=== PATIENT | female | born 1955 | race Caucasian/White ===

== ENCOUNTER 2016-08-20 13:30 | Observation (INO) ==
--- NOTE | 2016-08-20 13:45 | Emergency Department Note ---
Disposition Clinical Impression: Chest pain Qualifiers: Chest pain type: precordial pain Qualified Code(s): R07.2 - Precordial pain Disposition: Admitted As Inpatient Chest Pain HPI - General Chief Complaint: ED Chest Pain Stated Complaint: chest pain off and on for 4 days Time Seen by Provider: 08/20/16 13:39 Source: patient Mode of arrival: private vehicle Limitations: no limitations Vital Signs Reviewed: Yes Nursing Notes Reviewed: Yes - History of Present Illness HPI Narrative: Patient late she has been having intermittent left parasternal chest pain for about 4 days. She states the pain has been steady today and is described as "aggravating". She states the pain is aching in his worse with motion or exertion. She has a change activity, strain, impact or injury. She has not had rash or swelling. She states she has COPD but no increased shortness of breath. She does have dyspnea on exertion but that is chronic. She has diaphoresis or nausea. She denies radiation of this pain to her back, jaw, arms or neck. She denies any pain like this before. She describes the pain as "just aggravating" but then also states is a 10 on a scale of 1-10. She does relate that she sees Dr. Hamilton at [facility] cardiology. She did have 3 cardiac stents placed in April 2016. Pt complaint: chest pain Onset (ago): day(s) (4) Duration: intermittent, gradually worsening Onset: during rest Pain Location: left chest Severity: moderate Quality: aching Pain Radiation: none Improves with: rest Worsens with: exertion, palpation, movement Associated symptoms: Denies: nausea, vomiting, diaphoresis, dyspnea, syncope, palpitations, fever, cough, leg swelling - Related Data Home Medications Medication Instructions Recorded Confirmed Amlodipine Besylate [Norvasc] 10 mg PO DAILY 10/21/14 08/20/16 Cyclobenzaprine HCl 10 mg PO TID 10/21/14 08/20/16 Losartan/Hydrochlorothiazide 1 each PO DAILY 10/21/14 08/20/16 [Losartan-Hctz 100-25 mg Tab] Oxycodone HCl/Acetaminophen 1 tab PO Q6H PRN 10/21/14 08/20/16 [Percocet 5-325 mg Tablet] Rosuvastatin [Crestor] 40 mg PO HS 10/21/14 08/20/16 Trazodone HCl 1 - 2 tab PO PRN PRN 10/21/14 08/20/16 Fluticasone/Salmeterol [Advair 1 each IH BID 03/25/15 08/20/16 250-50 Diskus] Tiotropium [Spiriva] 18 mcg IH 0700 03/25/15 08/20/16 Albuterol Sulfate [Proair 90 mcg IH Q4HR PRN 04/28/15 08/20/16 Respiclick] Fluticasone Propionate Nasal 0 gm QPM 04/28/15 08/20/16 [Flonase] Naproxen [Naprosyn] 500 mg PO BID 04/28/15 08/20/16 Previous Rx's Medication Instructions Recorded Aspirin Enteric Coated [Aspirin EC] 81 mg PO DAILY #30 tablet. 10/22/14 Clopidogrel [Plavix] 75 mg PO DAILY #30 tablet 10/22/14 Doxycycline 100 mg PO BID #14 capsule 07/08/16 GuaiFENesin/Dextromethorphan 1 each PO BID #14 tab.er.12h 07/08/16 [Mucus Dm Max 1,200-60 mg Tab] Allergies Allergy/AdvReac Type Severity Reaction Status Date / Time Latex, Natural Rubber Allergy Hives Verified 07/08/16 11:54 Penicillins Allergy Hives Verified 07/08/16 11:54 propoxyphene Allergy Hives Verified 07/08/16 11:54 All systems ED: reviewed and negative except as stated. Chest Pain PMH - Past Medical History Medical history: Reports: asthma, COPD, coronary artery disease, hyperlipidemia , hypertension Surgical history: Reports: angioplasty/stent, hysterectomy, orthopedic, other ( Right shoulder and rib repair) Psychiatric history: Reports: no psych history MAINTENANCE [employer] history: Reports: no MAINTENANCE [employer] history - Social History Smoking Status: Current every day smoker Alcohol use: Reports: none Drug use: Reports: none Physical Exam - General Limitations: no limitations General appearance: alert, in no apparent distress - Head Head exam: atraumatic, normocephalic, normal inspection - Eye Eye exam: Present: normal appearance, PERRL, EOMI - ENT ENT exam: normal exam, normal oropharynx, mucous membranes moist - Neck Neck exam: Present: normal inspection, full ROM, trachea midline. Absent: tenderness, lymphadenopathy - Chest Chest inspection: Present: normal inspection, symmetric chest wall rise, tenderness (Left peristernal region) - Respiratory Respiratory exam: Present: wheezes. Absent: respiratory distress, accessory muscle use, prolonged expiratory phase - Cardiovascular Cardiovascular exam: Present: regular rate, normal rhythm, normal heart sounds - Abdominal Exam Abdominal exam: Present: soft, Non-Tender, normal bowel sounds. Absent: tenderness, distention, guarding, rebound, rigidity - Extremities Exam Extremities exam: Present: normal inspection, full ROM, normal capillary refill. Absent: tenderness, pedal edema - Expanded Lower Extremity Exam Neurovascular/Tendon exam: Present: normal capillary refill. Absent: motor deficit, sensory deficit, tendon deficit Gait: observed and normal - Back Exam Back exam: Present: normal inspection, full ROM. Absent: tenderness, CVA tenderness (R), CVA tenderness (L), vertebral tenderness - Neurological Exam Neurological exam: Present: alert, oriented X3, normal gait - Psychiatric Psychiatric exam: Present: normal affect, normal mood - Skin Skin exam: Present: warm, dry, intact, normal color. Absent: cyanosis, diaphoresis, pallor Course Vital Signs Temperature 99.1 F 08/20/16 13:32 Respiratory Rate 16 08/20/16 13:32 Temperature 97.7 F 08/20/16 15:31 Pulse Rate 71 08/20/16 15:26 Respiratory Rate 20 08/20/16 15:31 Blood Pressure 118/68 08/20/16 15:31 O2 Sat by Pulse Oximetry 95 08/20/16 15:26 Oxygen Delivery Oxygen Delivery Nasal Cannula Chest Pain - Differential Diagnosis Likely: atypical chest pain, costalchondritis, chest pain - Lab Data Lab results reviewed: Yes I reviewed the patient's lab results. Result diagrams: 08/20/16 13:55 08/20/16 13:55 Lab Results 08/20/16 08/20/16 08/20/16 Range/Units 13:55 13:55 13:55 WBC 12.0 H (4.3-11.1) K/mcL RBC 4.54 (3.82-4.97) M/mcL Hgb 13.6 (11.5-15.4) g/dL Hct 39.1 (35.3-44.9) % MCV 86.1 (83.0-100.0) fL MCH 30.0 (28.0-33.3) pg MCHC 34.8 (31.6-35.5) g/dL RDW 14.4 (11.5-14.5) % Plt Count 217 (140-400) K/mcL MPV 10.4 (9.4-12.4) fL Immature Gran % 0.3 (0-4) % Seg Neutrophils % 76.7 % Lymphocytes % 16.7 % Monocytes % 5.7 % Eosinophils % 0.3 % Basophils % 0.3 % Neutrophils # 9.2 H (1.6-8.9) K/mcL Lymphocytes # 2.0 (0.6-4.6) K/mcL Monocytes # 0.7 (0.0-1.3) K/mcL Eosinophils # 0.0 (0.0-0.6) K/mcL Basophils # 0.0 (0.0-0.2) K/mcL PT 11.8 (9.4-12.1) Seconds INR 1.1 APTT 31.2 (26.0-36.0) Seconds Sodium 141 (136-145) mEq/L Potassium 3.0 L (3.5-4.5) mEq/L Chloride 103 (98-109) mEq/L Carbon Dioxide 25 (19-29) mEq/L BUN 20 (7-20) mg/dL Creatinine 0.83 (0.57-1.11) mg/dL Est GFR ( Amer) > 60 (> 60) Est GFR (Non-Af Amer) > 60 (> 60) BUN/Creatinine Ratio 24 (6-26) Glucose 144 H (70-99) mg/dL Calculated Osmolality 297 (280-300) Calcium 10.0 (8.6-10.8) mg/dL Troponin I (0-0.03) ng/mL 08/20/16 Range/Units 13:55 WBC (4.3-11.1) K/mcL RBC (3.82-4.97) M/mcL Hgb (11.5-15.4) g/dL Hct (35.3-44.9) % MCV (83.0-100.0) fL MCH (28.0-33.3) pg MCHC (31.6-35.5) g/dL RDW (11.5-14.5) % Plt Count (140-400) K/mcL MPV (9.4-12.4) fL Immature Gran % (0-4) % Seg Neutrophils % % Lymphocytes % % Monocytes % % Eosinophils % % Basophils % % Neutrophils # (1.6-8.9) K/mcL Lymphocytes # (0.6-4.6) K/mcL Monocytes # (0.0-1.3) K/mcL Eosinophils # (0.0-0.6) K/mcL Basophils # (0.0-0.2) K/mcL PT (9.4-12.1) Seconds INR APTT (26.0-36.0) Seconds Sodium (136-145) mEq/L Potassium (3.5-4.5) mEq/L Chloride (98-109) mEq/L Carbon Dioxide (19-29) mEq/L BUN (7-20) mg/dL Creatinine (0.57-1.11) mg/dL Est GFR ( Amer) (> 60) Est GFR (Non-Af Amer) (> 60) BUN/Creatinine Ratio (6-26) Glucose (70-99) mg/dL Calculated Osmolality (280-300) Calcium (8.6-10.8) mg/dL Troponin I 0.01 (0-0.03) ng/mL - Radiology Data Radiology results reviewed: Yes I reviewed the patient's radiology results. Single view chest x-ray is performed. This does not demonstrate evidence for infiltrate, effusion, pneumothorax, foreign body or heart failure. The cardiac silhouette is normal. I do not see abnormality to the osseous structures of the chest. This is on my interpretation. Impressions Chest X-Ray 08/20/16 13:39 IMPRESSION: No acute infiltrate is identified. Prominent pulmonary arterial trunk suspicious for pulmonary arterial hypertension. D/ / Jay Putnam MD / Jay Putnam MD Interpreting Provider: Jay Putnam MD - EKG Data EKG attestation: Yes I reviewed and interpreted this EKG. EKG shows normal: sinus rhythm, axis, intervals, ST-T waves [place]/QRS: RBBB P waves: LAE Interpretation: no acute changes Heart Score - Score History: Slightly Suspicious EKG: Non Specific repolarisation Disturbance Age: 45-65 Risk Factors: Equal/Greater than 3 risk factor or history of atherosclerotic disease Troponin: Less than normal limit HEART Score Total: 4
[2016-08-20] MEDS ORDERED: Aspirin 325 MG TABLET PO ONE (13:48)
[2016-08-20] MEDS: Nitroglycerin 0.4 MG TAB.SUBL SL PRN ×2 (14:02→14:09)
[2016-08-20 14:04] LABS: Basophils % 0.3 %; Eosinophils % 0.3 %; Hematocrit 39.1 % (35.3-44.9); Hemoglobin 13.6 g/dL (11.5-15.4); Immature Granulocytes % 0.3 % (0-4); Lymphocytes % 16.7 %; Mean Corpuscular HGB Conc 34.8 g/dL (31.6-35.5); Mean Corpuscular Volume 86.1 fL (83.0-100.0); Mean Platelet Volume 10.4 fL (9.4-12.4); Monocytes # 0.7 K/mcL (0.0-1.3); Monocytes % 5.7 %; Neutrophils # 9.2 K/mcL (1.6-8.9); Platelet Count 217 K/mcL (140-400); Red Blood Count 4.54 M/mcL (3.82-4.97); Red Cell Distribution Width 14.4 % (11.5-14.5); Segmented Neutrophils % 76.7 %
[2016-08-20 14:10] LABS: INR 1.1; Prothrombin Time 11.8 Seconds (9.4-12.1)
[2016-08-20 14:13] LABS: Activated Partial Thrombo Time 31.2 Seconds (26.0-36.0)
[2016-08-20] MEDS ORDERED: Nitroglycerin 1 INCH/GM PACKET TP ONE (14:16)
[2016-08-20 14:17] LABS: BUN/Creatinine Ratio 24 (6-26); Blood Urea Nitrogen 20 mg/dL (7-20); Carbon Dioxide 25 mEq/L (19-29); Chloride 103 mEq/L (98-109); Glucose 144 mg/dL (70-99); Osmolality,Calculated 297 (280-300); Sodium 141 mEq/L (136-145); eGFR For African Americans > 60 (> 60); eGFR For Non-African Americans > 60 (> 60)
[2016-08-20] MEDS ORDERED: Nitroglycerin 0.4 MG TAB.SUBL SL PRN (15:14)
[2016-08-20] MEDS ORDERED: Ondansetron 4 MG/2 ML VIAL IVP PRN (15:14)
[2016-08-20] MEDS ORDERED: MOM Conc 10 ML UD.LIQ PO PRN (15:14)
[2016-08-20] MEDS ORDERED: Acetaminophen 325 MG TABLET PO PRN (15:14)
[2016-08-20] MEDS ORDERED: Naloxone 0.4 MG/ML INJ IVP PRN (15:14)
[2016-08-20] MEDS ORDERED: *HR* OxyCODONE/APAP 5/325 TABLET PO PRN (15:14)
--- NOTE | 2016-08-20 16:37 | Electrocardiograph Report ---
[address] [address] Test Date: 2016-08-20 Pat Name: Shelli Lynn Department: [id number] Room: [facility] Gender: F Program Evaluator: [id number] : 1955 Requested By: Domo Moses Order Number: [id number] Reading MD: Tima Haque Measurements Intervals [place] Rate: 91 P: -14 GA: 166 QRS: -18 QRSD: 148 T: 16 QT: 390 QTc: 439 Interpretive Statements SINUS RHYTHM POSSIBLE LEFT ATRIAL ENLARGEMENT RIGHT BUNDLE BRANCH BLOCK Electronically Signed On 08-20-2016 16:35:34 EDT by Tima Haque
[2016-08-20] MEDS: GuaiFENesin/Dextromethorphan TABLET PO SCH (21:00)
[2016-08-20] MEDS ORDERED: amLODIPine 5 MG TABLET PO SCH (21:00)
[2016-08-20] MEDS: Doxycycline 100 MG CAPSULE PO SCH (21:00)
[2016-08-20] MEDS: Budesonide/Formoterol 80/4.5 MDI IH SCH (21:34)
[2016-08-21] MEDS ORDERED: Nitroglycerin 1 INCH/GM PACKET TP SCH (06:00)
[2016-08-21 06:35] VITALS: BP 122/77
[2016-08-21] MEDS ORDERED: Tiotropium 18 MCG inhalation IH SCH (07:00)
[2016-08-21] MEDS: Budesonide/Formoterol 80/4.5 MDI IH SCH (08:01)
[2016-08-21] MEDS: GuaiFENesin/Dextromethorphan TABLET PO SCH (08:26)
[2016-08-21] MEDS: Doxycycline 100 MG CAPSULE PO SCH (08:26)
[2016-08-21] MEDS ORDERED: Aspirin Enteric Coated 81 MG Tablet PO SCH (09:00)
[2016-08-21] MEDS ORDERED: Losartan/HCTZ 50-12.5 TABLET PO SCH (09:00)
--- NOTE | 2016-08-21 09:49 | Internal Med History&Physical ---
Date of Encounter: 08/21/16 Time of Encounter: 09:20 Assessment and Plan (1) Chest pain Current visit: Yes Status: Acute Doubt myocardial ischemic origin from history and physical. Repeat cardiac enzymes were ordered through emergency room. Qualifiers: Chest pain type: unspecified Qualified Code(s): R07.9 - Chest pain, unspecified (2) Hypokalemia Current visit: Yes Status: Acute Probably secondary to diuretic use. We will give supplemental potassium. Internal Medicine - H&P: HPI Chief complaint: Chest pain Admitted From: Home Plans for Post Hospital Care: Home History of present illness: Ms. Lynn is a 61 year old female who came to emergency room stating she had onset of chest pain July 16 while at leisure. The pain seemed to come and go for the first 2 days but on the third day returned and did not resolve. She describes it as a heaviness/tightness in her left parasternal area. There was no cough or dyspnea associated. On August 20 the pain seemed to worsen so she tried nitroglycerin spray at home. There was no relief. She came to emergency room and was evaluated and admitted to [facility] floor for ongoing care needs. She states she is pain-free at this time and wishes to be discharged home. Her cardiovascular history is significant for hypertension. She denies [place] but states she had 3 stents placed July 2015. She is uncertain she has CHF. She states she had a right leg DVT many years ago. She denies pulmonary embolus. She does not get angina or anginal equivalents on exertion. She has not had previous similar chest pain. Past Med Surg Social Fam HX - Past Medical History Medical history: asthma, COPD, coronary artery disease, hyperlipidemia, hypertension Psychiatric history: no psych history - Past Surgical History Surgical History: angioplasty/stent, hysterectomy, orthopedic, other (Right shoulder and rib repair) - Social History Smoking Status: Current every day smoker Packs per day: 1.5 ppd Smokeless Tobacco Status: No Alcohol use: none Drug use: none Internal Medicine - H&P: Meds Amlodipine Besylate [Norvasc] 10 mg PO DAILY 10/21/14 [History] Cyclobenzaprine HCl 10 mg PO TID 10/21/14 [History] Losartan/Hydrochlorothiazide [Losartan-Hctz 100-25 mg Tab] 1 each PO DAILY 10/21 [History] Oxycodone HCl/Acetaminophen [Percocet 5-325 mg Tablet] 1 tab PO Q6H PRN [History] Rosuvastatin [Crestor] 40 mg PO HS 10/21/14 [History] Trazodone HCl 1 - 2 tab PO PRN PRN 10/21/14 [History] Aspirin Enteric Coated [Aspirin EC] 81 mg PO DAILY #30 tablet. 10/22/14 [Rx] Clopidogrel [Plavix] 75 mg PO DAILY #30 tablet 10/22/14 [Rx] Fluticasone/Salmeterol [Advair 250-50 Diskus] 1 each IH BID 03/25/15 [History] Tiotropium [Spiriva] 18 mcg IH 0700 03/25/15 [History] Albuterol Sulfate [Proair Respiclick] 90 mcg IH Q4HR PRN 04/28/15 [History] Fluticasone Propionate Nasal [Flonase] 0 gm QPM 04/28/15 [History] Naproxen [Naprosyn] 500 mg PO BID 04/28/15 [History] Doxycycline 100 mg PO BID #14 capsule 07/08/16 [Rx] GuaiFENesin/Dextromethorphan [Mucus Dm Max 1,200-60 mg Tab] 1 each PO BID #14 tab.er.12h 07/08/16 [Rx] Allergies Latex, Natural Rubber Allergy (Verified 07/08/16 11:54) Hives negative lindsay test 04/27 Penicillins Allergy (Verified 07/08/16 11:54) Hives propoxyphene Allergy (Verified 07/08/16 11:54) Hives All Systems PM: A 10-system review of systems was performed and is negative for pertinent findings except as documented above in the HPI. Review of systems: Gen.: She states her weight has been stable past few months Cardiovascular:As per history of present illness Respiratory: Smoked since age 17 up to 2 packs per day. She has a diagnosis of COPD but does not recall if she has had PFTs. She has oxygen at home that she wears at bedtime. GI: She denies disorders of her liver gallbladder or exocrine pancreas : She denies hematuria dysuria or kidney stones Neurologic: She denies large distribution strokes or seizures. She had a cerebrovascular aneurysm clipping procedure in the past Endocrine: She has hyperlipidemia but denies diabetes or thyroid disease Hematology/oncology: She denies blood disorders cancers or anemia Psychiatric: She denies anxiety depression or other mental health issues [place] skeletal: She has DJD but denies other bone joint or muscle disorders. She had a horse related accident several years ago and sustained right rib fractures, right shoulder injury and right clavicle fracture. - Constitutional Vitals: Temp Pulse Resp BP Pulse Ox 97.9 F 61 14 122/77 95 08/21/16 06:32 08/21/16 06:32 08/21/16 08:00 08/21/16 06:32 08/21/16 08:37 General appearance: Present: A&O X 2 Exam: Gen.: She is a well-developed well-nourished female who appears in no acute distress at present time HEENT: Head is atraumatic and normocephalic. Eyes: EOMI. There is no scleral icterus. Mouth: Mucosa is moist. Neck: Supple and nontender. There is no thyromegaly or adenopathy noted. Heart: Regular without murmurs gallops or ectopics Chest: She is nontender in chest wall to palpation Back: Straight without flank tenderness or presacral edema Abdomen: Soft and nontender. No masses or guarding noted. Extremities: There is no cyanosis edema clubbing noted. She is wearing CARLENE hose which I did not remove. Neurologic: Mental status: She is talkative and a good historian. Cranial nerves: Smile is symmetric. Forehead wrinkles bilaterally. Tongue protrudes midline. EOMI. Motor: There is no pronator drift. Cerebellar: Finger to nose is intact bilaterally. Skin: Warm and dry Internal Med - H&P Results - Labs CBC & Chem 7: 08/20/16 13:55 08/20/16 13:55 Labs: Cardiac Enzymes 08/20/16 08/21/16 Range/Units 19:54 01:50 Troponin I 0.02 0.01 (0-0.03) ng/mL - VTE Documentation of Mechanical Device: Graduated compression elastic hosiery
--- NOTE | 2016-08-21 10:01 | Discharge Summary ---
Date of Encounter: 08/21/16 Time of Encounter: 09:20 - Discharge Diagnosis (1) Chest pain Priority: Primary Status: Resolved Qualifiers: Chest pain type: unspecified Qualified Code(s): R07.9 - Chest pain, unspecified (2) Hypokalemia Priority: Secondary Status: Acute - Discharge Medications Prescriptions: Potassium Chloride 20 meq PO DAILY #30 tab.er.prt Home Medications: Amlodipine Besylate [Norvasc] 10 mg PO DAILY 10/21/14 [History] Cyclobenzaprine HCl 10 mg PO TID 10/21/14 [History] Losartan/Hydrochlorothiazide [Losartan-Hctz 100-25 mg Tab] 1 each PO DAILY 10/21 [History] Oxycodone HCl/Acetaminophen [Percocet 5-325 mg Tablet] 1 tab PO Q6H PRN [History] Rosuvastatin [Crestor] 40 mg PO HS 10/21/14 [History] Trazodone HCl 1 - 2 tab PO PRN PRN 10/21/14 [History] Aspirin Enteric Coated [Aspirin EC] 81 mg PO DAILY #30 tablet.dr 10/22/14 [Rx] Clopidogrel [Plavix] 75 mg PO DAILY #30 tablet 10/22/14 [Rx] Fluticasone/Salmeterol [Advair 250-50 Diskus] 1 each IH BID 03/25/15 [History] Tiotropium [Spiriva] 18 mcg IH 0700 03/25/15 [History] Albuterol Sulfate [Proair Respiclick] 90 mcg IH Q4HR PRN 04/28/15 [History] Fluticasone Propionate Nasal [Flonase] 0 gm QPM 04/28/15 [History] Naproxen [Naprosyn] 500 mg PO BID 04/28/15 [History] Doxycycline 100 mg PO BID #14 capsule 07/08/16 [Rx] GuaiFENesin/Dextromethorphan [Mucus Dm Max 1,200-60 mg Tab] 1 each PO BID #14 tab.er.12h 07/08/16 [Rx] Potassium Chloride 20 meq PO DAILY #30 tab.er.prt 08/21/16 [Rx] Allergies/Adverse Reactions: Allergies Latex, Natural Rubber Allergy (Verified 07/08/16 11:54) Hives negative lindsay test 04/27 Penicillins Allergy (Verified 07/08/16 11:54) Hives propoxyphene Allergy (Verified 07/08/16 11:54) Hives Date of admission: 08/20/16 15:04 Primary care physician: Reginaldo Bowden MD - Patient Status Disposition: Home, Self-Care Functional capacity at discharge: independent ambulation Overall status at discharge: patient is progressing back to baseline - Discharge Instructions Follow Up With: Rgeinaldo Bowden MD [Primary Care Provider] - 1 week - Diet and Activity Activity: resume usual activities as tolerated Diet: advance to your usual diet Hospital course: Ms. Lynn is a 61 year old female who came to emergency room stating she had onset of chest pain July 16 while at leisure. The pain seemed to come and go for the first 2 days but on the third day returned and did not resolve. She describes it as a heaviness/tightness in her left parasternal area. There was no cough or dyspnea associated. On August 20 the pain seemed to worsen so she tried nitroglycerin spray at home. There was no relief. She came to emergency room and was evaluated and admitted to [facility] for ongoing care needs. Initial orders were written by the emergency room physician. I saw her on August 21 and performed a history and physical. Repeat cardiac enzymes showed no evidence of myocardial damage. The etiology the pain was not determined with certainty. She was pain-free after receiving SL nitroglycerin in emergency room and did not have any recurrence of the discomfort during her hospital stay. When I saw her she wished to be discharged which I felt was reasonable. She reported she had a new prescription of nitroglycerin spray at home. I encouraged her to become a nonsmoker. She received a prescription for potassium chloride 20 mg once daily at discharge for the hypokalemia. Her PCP can follow up on monitoring this. - Time Spent with Patient Total time spent providing and/or coordinating discharge services: - Constitutional Vitals: Temp Pulse Resp BP Pulse Ox 97.9 F 61 14 122/77 95 08/21/16 06:32 08/21/16 06:32 08/21/16 08:00 08/21/16 06:32 08/21/16 08:37 General appearance: Present: A&O X 2 - VTE Documentation of Mechanical Device: Graduated compression elastic hosiery
== END 2016-08-21 10:27 | disposition home or self-care (01) ==
LOC: EMEROOPIK 13:30 → INPPIK 13:30
PROVIDERS: ADMIT Internal Medicine; ATTEND Internal Medicine